=== PATIENT | male | born 2000 | race Asian ===

== ENCOUNTER 2019-11-04 18:58 | Emergency (ER) | payer OTHER ==
[~2019-11-04] VITALS: Ht 170.2 cm; Wt 68.0 kg
--- NOTE | 2019-11-04 19:28 | Emergency Department Note ---
History of Present Illnes History of Present Illness Chief Complaint: Genitourinary History of Present Illness This is a 19 year old male presents to the ED for penile pain after he forcibly self removed herr catheter. Patient is able to void. Historian: Patient Arrival Mode: Car Onset (how long ago): day(s) (3) Severity: moderate Duration (how long): day(s) (3) Timing of current episode: constant Progression: worsening Context: Reports recent immobilization Relieving factors: none Exacerbating factors: none Associated symptoms: Reports denies other symptoms Treatments prior to arrival: none Past Medical/Family History Physician Review I have reviewed the patient's past medical and family history. Any updates have been documented here. Social History Smoking Cessation: Current some day smoker Alcohol Use: None Any Illegal Drug Use: Yes Review of Systems Review of Systems Constitutional: Reports no symptoms EENTM: Reports no symptoms Cardiovascular: Reports no symptoms Respiratory: Reports no symptoms Gastrointestinal: Reports no symptoms Genitourinary: Reports pain Musculoskeletal: Reports no symptoms Integumentary: Reports no symptoms Neurological: Reports no symptoms Psychological: Reports no symptoms Endocrine: Reports no symptoms Hematological/Lymphatic: Reports no symptoms Physical Exam Related Data Allergies: Coded Allergies: No Known Allergies (Unverified , 11/04/19) Triage Vital Signs Vital Signs Date Time Temp Pulse Resp B/P (MAP) Pulse Ox O2 Delivery O2 Flow Rate FiO2 11/04/19 19:10 98.9 92 17 135/96 98 Room Air Vital signs reviewed: Yes Physical Exam CONSTITUTIONAL HENT EYES NECK PULMONARY CARDIOVASCULAR GASTROINTESTINAL GENITOURINARY Genitourinary: Present other (CIRCUMFIRENTIAL EDEMA PROXIMAL TO THE GLANS PENIS. ) SKIN MUSCULOSKELETAL NEUROLOGICAL PSYCHOLOGICAL Procedures Penile Procedure Local anesthetic: lidocaine 1% Critical Care Time Total Critical Care Time (min): 31 Critcal care necessary due to: trauma, other (THREAT TO limb) Critcal care time spent by me: discussion w consultants Assessment & Plan Medical Decision Making MDM Diff Dx : phimonsis,balanitis, paraphimosis, penile ischemia, penile necosis Assessment & Plan Final Impression: (1) Paraphimosis LENY BOYLE DO Nov 04, 2019 19:28
[2019-11-04] MEDS ORDERED: LIDOCAINE HCL 1% LOCAL INJ 20 ML VIAL INJ ONE (20:00)
--- NOTE | 2019-11-05 02:06 | Consultation ---
DATE OF CONSULTATION: 11/04/2019 Urology Consultation and Procedure Note CHIEF COMPLAINT/REASON FOR CONSULTATION: Paraphimosis, balanitis, Ríos trauma. HISTORY OF PRESENT ILLNESS: Arie Bedolla is a 19-year-old male, just left against medical advice from [facility] where he had a Ríos catheter placed due to an overdose question of Xanax. The patient reportedly pulled the Ríos catheter out, left against medical advice. Has had penile swelling and pain for the past 3 days with bleeding and edema. He normally is uncircumcised. He has had some difficulty urinating. PAST MEDICAL HISTORY: Left ankle surgery. Overdose medications denied. ALLERGIES: NKDA. SOCIAL HISTORY: Denied smoking or drinking. FAMILY HISTORY: Denied urologic stones or malignancies. REVIEW OF SYSTEMS: Noncontributory other than problems mentioned above for 12-organ systems. PHYSICAL EXAMINATION: GENERAL: Young male, in no acute distress. VITAL SIGNS: Temperature 98.7, pulse 92, respirations 17, blood pressure 135/96. HEENT: Sclerae anicteric. NECK: Supple. BACK: No costovertebral angle tenderness bilaterally. ABDOMEN: Soft. It is nontender. It is nondistended. No palpable masses. No palpable hernias. No palpable adenopathy. : Uncircumcised phallus. Severe paraphimosis, balanitis, 4+ edema, bleeding in the dorsal aspect and the paraphimotic band, meatus swollen shut. EXTREMITIES: Trace edema. NEURO: Moves all 4 extremities. PSYCH: Alert and mood appropriate. SKIN: Normal color. PERTINENT LABORATORY DATA: Pending. IMPRESSION: 1. Paraphimosis. 2. Balanitis. 3. Ríos trauma. 4. Hematuria. 5. Hypertension. 6. Penoscrotal edema. PLAN: 1. Procedure note. Discussed with the patient alternatives, risks, and benefits. Performed a reduction of paraphimosis Stretching and pulling of the foreskin to reduce the parphimosis emergently. The paraphimosis was reduced without complication in the presence Dr. Bedolla. The patient tolerated the procedure well. 2. The patient has Ríos trauma, needs a followup elective cystoscopy as an outpatient. 3. History of hematuria, needs elective cystoscopy. 4. The patient has hypertension, likely secondary to penile pain, penoscrotal edema with elevated penis. We will avoid baths for at least 72 hours. Shower and washes normally. Do not retract the foreskin for approximately 24 hours until edema resolves. Thank you for allowing me to participate in the care of your patient. The patient will follow up as an outpatient. MD SHARON Veloz/MODL /[id number] MTDD
== END 2019-11-04 20:30 | disposition home or self-care (01) ==
LOC: ER 19:53
DX: N47.2 Paraphimosis (principal); F17.210 Nicotine dependence, cigarettes, uncomplicated
CPT/HCPCS: 99282; J2001